=== PATIENT | male | born 2000 | race Caucasian/White ===

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

== ENCOUNTER 2020-10-14 13:42 | Emergency (ER) | payer OTHER ==
[~2020-10-14] VITALS: Ht 185.4 cm; Wt 90.9 kg
[2020-10-14 13:54] VITALS: BP 133/68
[2020-10-14] MEDS ORDERED: ONDANSETRON ODT 4 MG TAB.RAPDIS ONE (14:07)
[2020-10-14] MEDS ORDERED: KETOROLAC 60 MG/2 ML VIAL. IM ONE ×2 (14:07→14:15)
[2020-10-14] MEDS ORDERED: ONDANSETRON ODT 4 MG TAB.RAPDIS PO ONE (14:15)
--- NOTE | 2020-10-14 14:37 | RAD ---
Chest, PA and Lateral: Technique: PA and lateral views of the chest were obtained. History: Chest pain. Comparison: 08/10/2017. Findings: The heart and pulmonary vasculature appear within normal limits. The lungs are clear. The pleural ma rgins are clear. Impression: No acute chest process is seen. Electronically signed by: Ramses Mcneil MD (10/14/2020 2:35 PM) [id number]
[2020-10-14 14:44] LABS: ANION GAP 12 (6-14); BASO % 1 % (0-3); BLOOD UREA NITROGEN 14 mg/dL (8-26); BUN/CREATININE RATIO 12 (6-20); CALCIUM 9.4 mg/dL (8.5-10.1); CARBON DIOXIDE 24 mmol/L (21-32); CHLORIDE 101 mmol/L (98-107); CREATININE 1.2 mg/dL (0.7-1.3); EOS # 0.1 x10^3/uL (0.0-0.7); EOS % 3 % (0-3); GFR 75.7; GLUCOSE 93 mg/dL (70-99); HEMATOCRIT 45.1 % (39.0-53.0); HEMOGLOBIN 15.1 g/dL (13.0-17.5); LYMPH # 1.5 x10^3/uL (1.0-4.8); LYMPH % 38 % (24-48); MEAN CORPUSCULAR HEMOGLOBIN 31 pg (25-35); MEAN CORPUSCULAR HGB CONC 33 g/dL (31-37); MEAN CORPUSCULAR VOLUME 92 fL (79-100); MONO # 0.4 x10^3/uL (0.0-1.1); MONO % 11 % (0-9); NEUT # 1.8 x10^3uL (1.8-7.7); NEUT % 47 % (31-73); PLATELET COUNT 221 x10^3/uL (140-400); RED BLOOD COUNT 4.92 x10^6/uL (4.30-5.70); RED CELL DISTRIBUTION WIDTH 13.1 % (11.5-14.5); SODIUM 137 mmol/L (136-145); WHITE BLOOD COUNT 3.8 x10^3/uL (4.0-11.0)
--- NOTE | 2020-10-14 14:44 | PHYS DOC ---
Past History Past Medical History: No Pertinent History Past Surgical History: No Surgical History Smoking: Non-smoker Alcohol Use: Rarely Drug Use: None Adult General Chief Complaint Chief Complaint: CHEST PAIN HPI HPI Patient is a 1-year-old male presents emergency department complaining of off-and-on chest pain for the past 5 to 7 days per her statement. Patient states that he notices a pain scale from 0/10 1-10 pain scale up to a 6-7/10 pain that increases sometimes with exertion although sometimes not, sometimes when he is sitting doing nothing he experiences the pain although most often he states he does not have pain he describes it in the sternal area without radiation a sharp pressure. Does not increase with movement of his upper extremities, deep inhalation or exhalation. Patient denies any diaphoretic episodes. Patient denies any vomiting however he does currently complain of nausea intermittently over the past 5 days and states he is nauseated at this time. Patient does complain of intermittent nasal congestion however denies nasal congestion today, states that he feels like he is coming down with a sinus infection. Patient reports having a productive cough for the past 3 to 4 days reporting thick yellow sputum moderate amount expectorated with cough. Patient does not complain of increased pain when coughing. Patient denies any fever at home however complains of intermittent chills at night over the past 5 days. Patient currently denies any shortness of breath, denies chest palpitations, denies vomiting abdominal pain or abdominal discomfort. States he has had normal bowel movements and does not feel as he is constipated. Patient reports intermittent dental pain associated with his statement that he thinks he is coming down with a sinus infection however he denies any dental pain at this time. Patient states that he does have intermittent face pain underneath his eyes near his nose however denies any discomfort of his face or forehead at this time. Patient denies any rashes of his skin, denies any visual disturbances, denies any ear pain or drainage from his ears. Patient denies any loss of taste or loss of smell. Patient is concerned he may have the Covid virus. Patient also complains of mild throat discomfort. Patient denies feeling any swelling of his throat, patient denies any swelling of his glands. Patient states he has not taken any medications for his pain at home. Review of Systems Review of Systems 14 body systems of review of systems have been reviewed. See HPI for pertinent positives and negative responses, otherwise all other systems are negative, nonpertinent or noncontributory. Current Medications Current Medications Patient denies taking medications at home. Current Medications Medications (Trade) Dose Ordered Sig/Beverly Start Time Stop Time Status Last Admin Dose Admin Ketorolac Tromethamine (Toradol Im) 60 mg 1X ONCE 10/14/20 14:15 10/14/20 14:16 DC 10/14/20 14:23 60 MG Ondansetron HCl (Zofran Odt) 4 mg 1X ONCE 10/14/20 14:15 10/14/20 14:16 DC 10/14/20 14:23 4 MG Allergies Allergies Allergies Coded Allergies Type Severity Reaction Last Updated Verified No Known Drug Allergies 01/29/15 No Physical Exam Physical Exam Constitutional: Well developed, well nourished, no acute distress, non-toxic appearance. HENT: Normocephalic, atraumatic, bilateral external ears normal, oropharynx moist, no oral exudates, nose normal. Bilateral TMs normal, auditory canals within normal limits, there is no postnasal drip, mild erythema to oropharynx, no uvular edema, no peritonsillar abscess or drainage, tonsils are not edematous, no cobblestoning of the oropharynx appreciated. No epiglottitis or edema to the epiglottis. Eyes: PERRLA, EOMI, conjunctiva normal, no discharge. Neck: Normal range of motion, no tenderness, supple, no stridor. Cardiovascular:Heart rate regular rhythm, no murmur, heart sounds S1-S2. Lungs & Thorax: Bilateral breath sounds clear to auscultation all lung deleon, no adventitious lung sounds appreciated, the patient is not in any apparent respiratory distress. Abdomen: Bowel sounds normal, soft, no tenderness, no masses, no pulsatile masses. Skin: Warm, dry, no erythema, no rash. Back: No tenderness, no CVA tenderness. Extremities: No tenderness, no cyanosis, no clubbing, ROM intact, no edema. Neurologic: Alert and oriented X 3, normal motor function, normal sensory function, no focal deficits noted. Psychologic: Affect normal, judgement normal, mood normal. Musculoskeletal: There is no reproducible chest pain to palpation at the sternal area where patient complains of pain. Current Patient Data Vital Signs Vital Signs Date Time Temp Pulse Resp B/P (MAP) Pulse Ox O2 Delivery O2 Flow Rate FiO2 10/14/20 13:54 97.6 63 18 133/68 (89) 98 EKG EKG EKG performed at 1408 by house radiology staff, heart rate normal sinus rhythm at 72 bpm, SC interval 0.100, QTc interval 0.391, no acute STEMI, no ACS, no acute ischemia noted, EKG interpreted by ED attending physician Dr. Serrato Radiology/Procedures Radiology/Procedures STATUS: REG ER ORD. PHYSICIAN: DILMA ROJAS APRN REASON: CHEST PAIN PROCEDURE: CHEST PA & LATERAL Chest, PA and Lateral: Technique: PA and lateral views of the chest were obtained. History: Chest pain. Comparison: 08/10/2017. Findings: The heart and pulmonary vasculature appear within normal limits. The lungs are clear. The pleural margins are clear. Impression: No acute chest process is seen. Electronically signed by: Ramses Mcneil MD (10/14/2020 2:35 PM) [id number] DICTATED AND SIGNED BY: RAMSES MCNEIL MD DATE: 10/14/20 1433 CC: DILMA ROJAS APRN; IVONNE GARCIA ~MTH0 0 Heart Score HEART Score for Chest Pain: HEART Score for Chest Pain Response (Comments) Value History Slighlty/Non-Suspicious 0 ECG Normal 0 Age < 45 0 Risk Factors No Risk Factors 0 Troponin < Normal Limit 0 Total 0 Risk Factors: Risk Factors: DM, Current or recent (<one month) smoker, HTN, HLP, family history of CAD, obesity. Risk Scores: Risk Factors: DM, Current or recent (<one month) smoker, HTN, HLP, family history of CAD, obesity. Course & Med Decision Making Course & Med Decision Making Pertinent Labs and Imaging studies reviewed. (See chart for details) 20-year-old male presents emergency department complaining of intermittent chest pain over the last 7 days, his MACE score is 0, physical exam concerning for bronchitis, however patient is not reproducible chest pain a cardiac work-up was performed. His EKG was nonconcerning and was interpreted by ED attending Dr. Serrato, his chest x-ray was read negative for acute process by house radiologist interpretation. Patient was given ODT Zofran for nausea and an IM injection of Toradol for pain. Labs pending. Labs not concerning for systemic infectious process, patient's physical examination was consistent with URI/bronchitis. Patient will be started on prescriptions for Mucinex, Zyrtec, azithromycin, ProAir HFA inhaler MDI. Discussed findings with patient and discharge prescriptions home care instructions. Patient gave verbal understanding of home care instructions, r eturn to ER concerns and precautions, patient had no further questions or concerns, also discussed with patient that it is unlikely he has the COVID-19 virus, a test was obtained and to self isolate for the next 2 days / 48 hours until results are available, if positive to self isolate for an additional 8 more days. Patient was given both verbal and written instructions for the [place] VID-19 virus. Patient discharged home without incident. Dragon Disclaimer Dragon Disclaimer This electronic medical record was generated, in whole or in part, using a voice recognition dictation system. Departure Departure: Impression: Primary Impression: Bronchitis Additional Impressions: URI (upper respiratory infection) Person under investigation for COVID-19 Counseled about COVID-19 virus infection Educated about COVID-19 virus infection Disposition: 01 DC HOME SELF CARE/HOMELESS Condition: IMPROVED Referrals: IVONNE GARCIA (PCP) Patient Instructions: Acute Bronchitis, Upper Respiratory Infection, Adult Additional Instructions: Please take medications as prescribed, follow-up with your primary care doctor this week if not improving, return to the emergency department for worsening symptoms or other concerns. Your COVID-19 test should be available within the next 48 hours. Please social isolate until then, I have given you instructions related to the COVID-19 virus please review them. You have been tested for or diagnosed with COVID-19. It is an infection caused by a new type of coronavirus. COVID-19 will cause cold-like or mild flu symptoms in most. It can cause more severe symptoms like problems breathing in some. There is no treatment for COVID-19. The body will clear the infection over time. Self-care will help to ease discomfort. Steps to Take: Self-Care Rest as needed. Healthy habits may help you feel better. Steps include: Choose healthy foods including fruits and vegetables. Drink water throughout the day. Get plenty of sleep each night. If you smoke, try to quit. It may ease breathing. Avoid alcohol. Keep Others Healthy The virus can spread to others. Droplets are released every time you sneeze or cough. The droplets can get into the mouth, nose, or eyes of people near you and lead to infection. To lower the chances of spreading COVID-19 to others: Stay at home until your doctor has said it is safe to leave. If you tested positive this will mean staying isolated until both of the following are true: At least 7 days have passed since the start of illness. You are free of fever for at least 72 hours without the use of medicine. During this time: - Avoid public areas, events, or transportation. Do not return to work or school until your doctor has said it is safe to do so. - Call ahead if you need to go to a medical center. Let them know you may have COVID-19. It will help them guide you where to go. They may also ask you to wear a facemask when you come to the office. - If you call for emergency medical services, let them know you may have COVID- 19. While at home: - Try to avoid close contact with others. Stay about 6 feet away. - If possible, spend most of your time in a separate room from others. - Use a face mask if you will be in close contact with others such as sharing a room or vehicle. - Have someone wipe down common surfaces in the home. Use household contact lens polisher every day on areas like doorknobs, counters, or sinks. - Cough or sneeze into a tissue. Throw the tissue away right after use. If a tissue is not available, cough or sneeze into your elbow. - Wash your hands often. Wash them after sneezing or coughing. Use soap and water and wash for at least 20 seconds. Alcohol based hand kettle cleaner can be used if soap and water is not available. - Do not prepare food for others. Avoid sharing personal items like forks, spoons, or toothbrushes. - Avoid close contact with pets while you are sick. There is no evidence of the virus passing to pets. This is a safety step until more is known about this virus. Isolation can be frustrating. Social interaction can help. Keep in touch with friends and family through phone and tech options. You can still interact with others in your home, just keep a safe distance of about 6 feet. Follow-up: Your doctors office will check in with you to see if there are any changes in your health. You may be asked to keep track of symptoms to share with them. They will also let you know when you are clear to be in public again. Problems to Look Out For: Contact your doctor if your recovery is not going as you expect. Get emergency care if you have problems such as: - Trouble breathing - Nonstop chest pain or pressure - Changes in awareness, confusion, or problems waking - Lips or face have bluish color - Worsening of symptoms If you think you have an emergency, call for emergency medical services right away. As taken from [facility] EMERGENCY DEPARTMENT GENERAL DISCHARGE INSTRUCTIONS Thank you for coming to [facility] (ED) today and trusting us with you care. We trust that you had a positivie experience in our Emergency Department. If you wish to speak to the department management, you may call the director at [phone]. YOUR FOLLOW UP INSTRUCTIONS ARE FOLLOWS: 1. Do you have a private Doctor? If you do not have a private doctor, please ask for a resource list of physicians or clinics that may be able to assist you with follow up care. 2. The Emergency Physician has interpreted your x-rays. The X-Ray specialist will also review them. If there is a change in the findings, you will be notified in 48 hours when at all possible. 3. A lab test or culture has been done, your results will be reviewed and you will be notified if you need a change in treatment. ADDITIONAL INSTRUCTIONS AND INFORMATION: 1. Your care today has been supervised by a physician who is specially trained in emergency care. Many problems require more than one evaluation for a complete diagnosis and treatment. We recommend that you schedule your follow up appointment as recommended to ensure complete treatment of you illness or injury. If you are unable to obtain follow up care and continue to have a problem, or if your condition worsens, we recommend that you return to the ED. 2. We are not able to safely determine your condition over the phone nor are we able to give sound medical advice over the phone. For these safety reasons, if you call for medical advice we will ask you to come to the ED for further evaluation. 3. If you have any questions regarding these discharge instructions please call the ED at [phone]. SAFETY INFORMATION: In the interest of safety, wellness, and injury prevention; we encourage you to wear your sealbelt, if you smoke; quite smoking, and we encourage family to use a protective helmet for bicycling and other sporting events that present an increased risk for head injury. IF YOUR SYMPTOMS WORSEN OR NEW SYMPTOMS DEVELOP, OR YOU HAVE CONCERNS ABOUT YOUR CONDITION; OR IF YOUR CONDITION WORSENS WHILE YOU ARE WAITING FOR YOUR FOLLOW UP APPOINTMENT; EITHER CONTACT YOUR PRIMARY CARE DOCTOR, THE PHYSICIAN WHOSE NAME AND NUMBER YOU WERE GIVEN, OR RETURN TO THE ED IMMEDIATELY. Scripts Albuterol Sulfate (PROAIR HFA INHALER) 8.5 Gm Hfa.aer.ad 2 PUFF IH PRN Q4-6HRS PRN for wheezing for 21 Days, #1 INHALER 0 Refills Prov: DILMA ROJAS APRN 10/14/20 Azithromycin (AZITHROMYCIN TABLET) 250 Mg Tablet 1 PKG PO UD for URI for 5 Days, #6 TAB 0 Refills 2 the first day followed by 1 for days 2-5 Prov: DILMA ROJAS APRN 10/14/20 Cetirizine Hcl (ZYRTEC) 10 Mg Tablet 1 TAB PO DAILY for ALLERGIES, #30 TAB 2 Refills Prov: DILMA ROJAS APRN 10/14/20 Guaifen/Dextromethorphan/PE (Mucinex Fast-Max Congest-Cough) 180 Ml Liquid 180 ML PO PRN BID PRN for CONGESTION, #1 BOTTLE 0 Refills Prov: DILMA ROJAS APRN 10/14/20 Problem Qualifiers Additional Impressions: URI (upper respiratory infection) URI type: acute pharyngitis Pharyngitis/tonsillitis etiology: unspecified etiology Qualified Codes: J02.9 - Acute pharyngitis, unspecified DILMA ROJAS APRN Oct 14, 2020 14:44
[2020-10-14 14:59] LABS: ALBUMIN 4.2 g/dL (3.4-5.0); ALBUMIN/GLOBULIN RATIO 1.3 (1.0-1.7); ALK PHOS 70 U/L (46-116); ALT (SGPT) 17 U/L (16-63); AST (SGOT) 14 U/L (15-37); TOTAL BILIRUBIN 0.7 mg/dL (0.2-1.0); TOTAL PROTEIN 7.4 g/dL (6.4-8.2)
[2020-10-14] MEDS ORDERED: ALBU2.5V8 IH (15:51)
[2020-10-14] MEDS ORDERED: AZIT250T6 PO (15:51)
[2020-10-14] MEDS ORDERED: CETI10TA74 PO (15:51)
[2020-10-14] MEDS ORDERED: [UNRECOGNIZED DRUG - CODE] PO (15:51)
--- NOTE | 2020-10-15 07:45 | EKG ---
[address] [address] Test Date: 2020-10-14 Test Time: 14:08:49 Pat Name: CHRIS KELLEY Department: Room: Gender: M [place] Printer: SARATH : 2000 Requested By: DILMA ROJAS Order Number: [id number] Reading MD: Measurements Intervals [place] Rate: 72 P: 57 WA: 166 QRS: 78 QRSD: 108 T: 41 QT: 356 QTc: 391 Interpretive Statements SINUS RHYTHM OTHERWISE NORMAL ECG RI6.02 No previous ECG available for comparison
== END 2020-10-14 15:53 | disposition home or self-care (01) ==
LOC: ER 13:42
DX: J40 Bronchitis, not specified as acute or chronic (principal); J06.9 Acute upper respiratory infection, unspecified; Z20.828 Contact with and (suspected) exposure to other viral communicable diseases
CPT/HCPCS: 36415; 71046; 80053; 82553; 84484; 85025; 87070; 87880; 93005; 96372; 99285; C9803; J1885; Q0162; U0003